=== PATIENT | male | born 1970 | race African-American/Black ===

== ENCOUNTER 2016-08-12 19:43 | Emergency (ER) | payer SELFPAY ==
[~2016-08-12] VITALS: Ht 188 cm; Wt 97.5 kg
== END 2016-08-12 20:32 | disposition short-term general hospital (02) ==
LOC: ER 19:43 → EDSEX 21:02
DX: S29.012A Strain of muscle and tendon of back wall of thorax, initial encounter (principal); V43.52XA Car driver injured in collision with other type car in traffic accident, initial encounter